=== PATIENT | male | born 1990 | race Two or more races ===

== ENCOUNTER 2021-12-02 13:19 | Emergency (ER) | payer OTHER ==
[~2021-12-02] VITALS: Ht 180.3 cm; Wt 88.5 kg
[2021-12-02] MEDS ORDERED: LISINOPRIL10 MG PO (14:26)
[2021-12-02] MEDS ORDERED: AMOX-CLAV 875-1 EACH PO (17:51)
[2021-12-02] MEDS ORDERED: ZYRTEC10 MG PO (17:51)
[2021-12-02] MEDS ORDERED: ALLERGY RELIE15.8 ML NASAL (17:51)
== END 2021-12-02 18:41 | disposition home or self-care (01) ==
LOC: ER 13:19
DX: R51.9 Headache, unspecified (principal); J32.9 Chronic sinusitis, unspecified; R42 Dizziness and giddiness; R53.1 Weakness